=== PATIENT | female | born 1970 | race Caucasian/White ===

== ENCOUNTER 2016-08-29 07:42 | Emergency (ER) | payer OTHER ==
[2010-11-25 12:09] VITALS: BMI 36.8
[2016-08-29 08:14] LABS: BASOPHILS 0.3 % (0.0-2.0); EOSINOPHILS 1.3 % (0-7); HEMATOCRIT 46.5 % (36.0-48.0); HEMOGLOBIN 15.4 g/dL (12-16); IMMATURE GRANULOCYTES 0.3 % (0-5); LYMPHOCYTES 21.5 % (15-50); MCH 30.1 pg (26.0-34.0); MCHC 33.1 g/dL (31.0-37.0); MEAN PLATELET VOLUME 10.1 fL (7.4-10.4); MONOCYTES 7.1 % (2-11); NEUTROPHILS 69.5 % (40-80); RBC 5.11 10x6/uL (4.00-5.40); RDW 13.4 % (11.5-14.5); WBC 6.9 10x3/uL (4.8-10.8)
[2016-08-29 08:19] LABS: PLATELET COUNT 248 10x3/uL (130-400)
[2016-08-29 08:28] LABS: ALKALINE PHOSPHATASE 109 U/L (46-116); ALT (SGPT) 57 U/L (10-68); BILIRUBIN - TOTAL 0.32 mg/dL (0.2-1.3); CALC OSMOLALITY 280 mosm/kg (275-300); CARBON DIOXIDE 27.8 mmol/L (21.0-32.0); CHLORIDE - SERUM 104 mmol/L (98-107); CREATININE - SERUM 0.7 mg/dL (0.6-1.3); GLUCOSE 120 mg/dL (74-106); POTASSIUM - SERUM 4.1 mmol/L (3.5-5.1); SODIUM 141 mmol/L (136-145); UREA NITROGEN 9 mg/dL (7-18); eGFR NON AFRICAN AMERICAN > 90 mL/min (90-120)
[2016-08-29 08:38] LABS: CHOL - HDL RATIO 5.1 ratio (2.3-4.1); CHOLESTEROL, TOTAL 224 mg/dL (0-200); CKMB 0.8 U/L (0.0-3.6); CREATINE KINASE 113 UL (21-215); HDL CHOLESTEROL 44 mg/dL (32-96); LDL CHOLESTEROL 158 mg/dL (0-100); LDL-HDL RATIO 3.6 ratio (1.5-3.5); TRIGLYCERIDE 114 mg/dL (30-200)
[2016-08-29 08:44] LABS: TROPONIN-I < 0.017 ng/mL (0.000-0.060)
== END 2016-08-29 09:56 | disposition home or self-care (01) ==
LOC: D.ER 07:42
PROVIDERS: Emergency Medicine
DX: R10.13 Epigastric pain (principal); R07.9 Chest pain, unspecified; K82.8 Other specified diseases of gallbladder; E03.9 Hypothyroidism, unspecified

== ENCOUNTER 2020-04-07 05:28 | Day surgery (SDC) | payer BC, OTHER ==
[2020-04-05 16:22] LABS: HEMATOCRIT 42.8 % (36.0-48.0); HEMOGLOBIN 14.2 g/dL (12-16); MCH 30.3 pg (26.0-34.0); MCHC 33.2 g/dL (31.0-37.0); MCV 91.5 fL (80.0-100.0); MEAN PLATELET VOLUME 9.6 fL (7.4-10.4); RBC 4.68 10x6/uL (4.00-5.40); RDW 13.2 % (11.5-14.5); WBC 7.7 10x3/uL (4.8-10.8)
[~2020-04-07] VITALS: Ht 182.9 cm; Wt 124.3 kg
[~2020-04-07 05:28] MED LIST: BAYER CHEWABLE81 MG PO; COREG12.5 MG PO; CYCLOBENZAPRINE5 MG; LIPITOR40 MG PO; MULTI-DAY VITAM1 TAB PO; PEPCID AC20 MG PO; SYNTHROID100 MCG PO; ZETIA10 MG PO
[2020-04-07 07:35] LABS: HCG URINE NEGATIVE (NEGATIVE)
[2020-04-07 07:38] VITALS: BP 118/69; Ht 182.9 cm; Wt 124.3 kg
--- NOTE | 2020-04-07 14:00 | NUR ---
PATIENT DOING WELL. PAIN CONTROLLED. IV REMOVED WITH CATHALON INTACT. ABLE TO URINATE WITHOUT DIFFICULTY. ALL DC INSTRUCTIONS AND FOLLOW UP VISIT GIVEN. VOICES NO OTHER NEEDS. GETTING DRESSED AT BEDSIDE WITH ASSIST.
--- NOTE | 2020-04-07 14:18 | NUR ---
1415 READY TO GO HOME. TAKEN OUT VIA W/C AND ASSISTED TO CAR WITH . ADVISED TO CALL OR COME BACK IF ANY PROBLEMS.
--- NOTE | 2020-04-08 10:54 | OP ---
PATIENT NAME: OSCAR SHARIF MEDICAL RECORD: [id number] :74 LOCATION:D[facility] ADMISSION DATE: SURGEON: HOME ANTHONY MD DATE OF OPERATION: 04/07/2020 PREOPERATIVE DIAGNOSIS: Biliary dyskinesia, symptomatic gallstones. POSTOPERATIVE DIAGNOSES: 1. Biliary dyskinesia, symptomatic gallstones. 2. Hepatomegaly. PROCEDURES: 1. Laparoscopic cholecystectomy. 2. Intraoperative cholangiography without immediate surgeon interpretation. 3. 18-gauge core liver biopsies. SURGEON: Home Anthony MD MEDICAL PARASITOLOGIST: Rogelio [facility]. BLOOD LOSS: Minimal. ANESTHESIA: General. COMPLICATIONS: None. The indication for liver biopsy was hepatomegaly. The risks, possible complications, and alternatives to the procedure were explained to the patient. She elects to proceed. The discussion specifically included, but was not limited to, bleeding requiring emergency reoperation, infection, intestinal injury as well as common bile duct injury. OPERATIVE COURSE: The patient was conveyed to the operating room electively on 04/07/2020. General anesthesia was induced by the anesthesia staff. The abdomen was sterilely prepped and draped. A skin incision was accomplished in the left upper quadrant. Veress needle was inserted through the skin incision into the peritoneal cavity. CO2 insufflation was begun. Once a sufficient pneumoperitoneum had been achieved, a 5-mm trocar was inserted through the incision in the left upper quadrant. Under direct internal vision, a 12-mm trocar was inserted through an incision at the umbilicus. A 5-mm trocar was inserted through an incision in the epigastrium. Another 5-mm trocar was inserted through an incision far laterally in the right upper quadrant. During insertion of the Veress needle and all trocars, there appeared to have been no injury to the bowels, any intraperitoneal or retroperitoneal structures. Under laparoscopic guidance, I percutaneously accessed the right upper quadrant utilizing an 18-gauge core needle biopsy device. Cores of the liver were obtained over its convexity. The biopsy sites were made hemostatic with electrocautery. I then grasped the gallbladder and retracted it inferiorly. I advanced a cholangiogram trocar and punctured the fundus of the gallbladder. I aspirated bile. I then injected dye. Real time cholangiographic images were obtained and these were sent to the radiologist for interpretation. I then aspirated the gallbladder and removed the cholangiogram trocar. The gallbladder was grasped OPERATIVE REPORT [id number] OSCAR SHARIF and retracted cephalad. The infundibulum was grasped and retracted laterally. Blunt dissection was begun on the triangle of Calot. One cystic artery and one cystic duct were identified. These were clipped multiply and divided between clips. The gallbladder was then excised from its bed in the liver. It was placed within a bag retrieval device and was withdrawn through the umbilical fascial defect. The 12-mm trocar was replaced and the abdomen reinsufflated. I irrigated and aspirated in the right upper quadrant. There was no bleeding even at low pressure of 8. Utilizing the Roney-Eliza suture closure device and 0 Vicryl sutures, I closed the fascia at the umbilicus. The skin at the umbilicus was closed with interrupted 4-0 Vicryl Rapide sutures. The skin at the other trocar sites was closed with interrupted intracuticular 3-0 Vicryls. Benzoin and Steri-Strips were applied. The patient was then extubated and conveyed to the post-anesthesia care unit where she was in stable condition. She will be discharged home on a narcotic analgesic as well as stool softener. I will see her in the office in 3 weeks. TRANSINT:[id number] Voice Confirmation ID: [id number] DOCUMENT ID: [id number] HOME ANTHONY MD at 1054 CC: [id number] DICTATION DATE: 04/07/20 1805 JEWELRY MAKER: 04/08/20 0502 [facility] 04/07/20 [id number] [place] [address]
== END 2020-04-07 14:05 | disposition home or self-care (01) ==
LOC: D.OPS 05:28
PROVIDERS: Anesthesiology; ATTEND Surgery
DX: K82.8 Other specified diseases of gallbladder (principal); K80.80 Other cholelithiasis without obstruction; R16.0 Hepatomegaly, not elsewhere classified; R10.9 Unspecified abdominal pain; I25.10 Atherosclerotic heart disease of native coronary artery without angina pectoris